=== PATIENT | female | born 1940 | race Caucasian/White ===

== ENCOUNTER 2019-01-21 15:37 | Emergency (ER) | payer MEDICARE, OTHER ==
[~2019-01-21] VITALS: Ht 167.6 cm; Wt 63.0 kg
[~2019-01-21 15:37] MED LIST: APIX5TAB PO; ASPI-496 PO; ATOR10TA PO; BIMA2.5D EACHEYE; BRIM5DRO2 EACHEYE; CARV25TA12 PO; IMIP25TA3 PO; LISI1TAB20 PO; METF500T17 PO; MINO2.5T PO; MONT10TA9 PO; NIAC500C3 PO; NIAC500T26 PO; OMEP20CA9 PO; VERA240C2 PO; ZOLP10TA5 PO
[2019-01-21 17:10] LABS: MEAN CORPUSCULAR HEMOGLOBIN 28.7 pg (27.0-34.8); MEAN CORPUSCULAR HGB CONC 31.9 g/dL (32.4-35.8); MEAN CORPUSCULAR VOLUME 89.8 fL (80-100); MEAN PLATELET VOLUME 9.9 fL (7.4-10.4); PLATELET COUNT 232 x10^3/uL (130-400); RED BLOOD COUNT 4.78 x10^6/uL (3.82-5.3); RED CELL DISTRIBUTION WIDTH 14.5 % (9.6-15.2)
[2019-01-21 17:11] LABS: MD YES
[2019-01-21 17:19] LABS: ANION GAP 5 mmol/L (5-15); CALCIUM 9.1 mg/dL (8.5-10.1); CHLORIDE 112 mmol/L (98-107)
[2019-01-21 17:20] LABS: CREATININE 0.87 mg/dL (0.55-1.02)
--- NOTE | 2019-01-21 17:35 | NUR ---
PT HERE FOR RIGHT SIDED POSTERIOR CALF PAIN. PT REPORTS PAIN WITH MOVMEMENT. PT REPROTS NO INJURY.
--- NOTE | 2019-01-21 17:36 | NUR ---
US COMPLETE AND PA INFORMED.
[2019-01-21 18:40] LABS: LYMPHS% (MANUAL) 50 % (22-44); MONOS#(MANUAL) 0.15 x10^3/uL (0.3-2.7); MONOS% (MANUAL) 1 % (2-9); REACTIVE LYMPHS # (MANUAL) 1.08 x10^3/uL (0-0); REACTIVE LYMPHS % (MANUAL) 7 % (0-0); SEG#(MANUAL) 6.47 x10^3/uL (1.8-6.8); SEGS% (MANUAL) 42 % (42-75)
[2019-01-21 18:41] LABS: <PLATELET ESTIMATE> ADEQUATE; <PLT MORPHOLOGY> NORMAL PLT MORPH; <RBC MORPHOLOGY> NORMAL
[2019-01-21 19:15] VITALS: BP 202/98
--- NOTE | 2019-01-21 19:46 | NUR ---
bp is high still by manual pressure check yon aware and notified to dr morejon its oked to give clonidin then dc home no needed to recheck vss pt up on the w/c and dc home with daughter
== END 2019-01-21 19:49 | disposition home or self-care (01) ==
LOC: ED 19:00
DX: I82.431 Acute embolism and thrombosis of right popliteal vein (principal); I10 Essential (primary) hypertension; E11.9 Type 2 diabetes mellitus without complications; E78.00 Pure hypercholesterolemia, unspecified; Z87.891 Personal history of nicotine dependence
CPT/HCPCS: 36415; 72110; 80048; 85025; 99284